=== PATIENT | male | born 1995 | race Caucasian/White ===

== ENCOUNTER 2022-11-23 14:03 | Emergency (ER) | payer BC, SELFPAY ==
--- OUTSIDE RECORDS SUMMARY | 2022-11-23 14:07 | XMS REPORT | Continuity of Care Document ---
:1995 Author Organization [facility] Address [address] [facility] [address] [place] [address] Care Team Providers Name Role Phone Tabatha DRAPER, Precious Felix Attending Clinician Unavailable Pilar Oh RN Attending Clinician Unavailable DESHAWN ALCOCER Attending Clinician Unavailable Nurse, Alphonso Pcp Assessment Clinic Attending Clinician Unavail able Deshawn Alcocer MD Attending Clinician Problems Condition Condition Condition Status Onset Resolution Last Treating Co mments Source Name Details Category Date Date Treatment Clinician Date Intractabl Intractabl Diagnosis Active Common e migraine e migraine Sp sharron with aura with aura - CH I with with St status status [facility] migrainosu migrainosu Me dical s s [place] Anxiety Anxiety Diagnosis Active Commo n [facility] Allergies, Adverse Reactions, Alerts Allergy Allergy Status Severity Reaction(s) Onset Inactive Treating Comm ents Source Name Type Date Date Clinician NO KNOWN Drug Active Univers ALLERGIE Class ity [facility] Social History Social Habit Start Date Stop Date Quantity Comments Source Sex Assigned At [birth year] [facility] 00:00:00 00:00:00 [facility] Branch Smoking Status Start Date Stop Date Source Unknown if ever smoked [facility] Medications Ordered Filled Start Stop Current Ordering Indication Dosage Frequency Signature Comments Components Source Medication Medication Date Date Medication? Clinician (SIG) Name Name Propranolol Propranolol Yes Vida Antonyok 1 capsul e Common HCl ER HCl ER 02-19 [facility] 00:00: - [facility] Sumatriptan Sumatriptan Yes Vida [place] 1 tablet Common Succinate Succinate 02-19 as needed [facility] 00:00: - [facility] MagOx 400 MagOx 400 2019- No Vida [place] 1 tablet Common 02-19 with food [facility] 00:00: 00:00 - [facility] :00 [facility] Procedures This patient has no known procedures. Encounters Start End Encounter Admission Attending Care Care Encounter Source Date/Time Date/Time Type Type Clinicians Facility Department ID 2021-02-05 2021-02-05 Letter TabathaVANNESSA allison [id number] Univers 00:00:00 00:00:00 (Out) Percious Felix MALINA [id number] it y of [facility] [id number] Dominick as [phone] [facility] [address] [place] 2021-02-05 2021-02-05 Telephone VANNESSA Oh [id number] Univers 00:00:00 00:00:00 Pilar MALINA [id number] it y [facility] [id number] Dominick as [id number] [address] 2021-02-04 2021-02-04 Outpatient Jhoana ALCOCER [facility] [id number] Univers 15:45:00 15:45:00 DESHAWN espinoza [facility] 2021-02-04 2021-02-04 Laboratory Nurse, Gal Pcp Assessment C [facility] [id number] Univers 15:14:59 15:29:59 Only Deshawn Alcocer PRIMARY [id number] ity [id number] [id number] [facility] [address] Branch 2018-02-19 2018-02-19 Outpatient Ana Luisa Oroscot [id number] Common 11:30:00 11:30:[address] [facility] [address] [facility] Results This patient has no known results.
[2022-11-23] MEDS ORDERED: KETOROLAC 30 MG/ML INJ ONE (14:47)
[2022-11-23] MEDS ORDERED: HYDROCODONE/APAP 7.5/325 MG TAB ONE (15:14)
--- NOTE | 2022-11-23 16:31 | RAD REPORT ---
EXAM DESCRIPTION: EHSAN MCCABE - 11/23/2022 3:49 pm CLINICAL HISTORY: PAIN COMPARISON: No comparisons TECHNIQUE: Left hand, 3 views. FINDINGS: No fracture is identified. There is no dislocation or periosteal reaction noted. Joint alignment is maintained. Soft tissue swelling about the proximal fourth digit with soft tissue irregularity and punctate radio densities, could relate to debris. IMPRESSION: Soft tissue abnormalities as above, without acute osseous abnormality.
--- NOTE | 2022-11-23 16:39 | ER ---
Nurse's Notes 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 Coronavirus screen: Vaccine status: Patient reports receiving the 2nd dose of the covid vaccine. Ebola Screen: Patient negative for fever greater than or equal to 101.5 degrees Fahrenheit, and additional compatible Ebola Virus Disease symptoms Patient denies exposure to infectious person. Patient denies travel to an Ebola-affected area in the 21 days before illness onset. Initial Sepsis Screen: Does the patient meet any 2 criteria? No. Patient's initial sepsis screen is negative. Does the patient have a suspected source of infection? No. Patient's initial sepsis screen is negative. Risk Assessment: Do you want to hurt yourself or someone else? Patient reports no desire to harm self or others. Onset of symptoms was November 23, 2022. 14:19 Method Of Arrival: Ambulatory vg1 14:19 Acuity: ALISHA 3 vg1 Triage Assessment: 14:23 General: Appears in no apparent distress. uncomfortable, Behavior is cooperative. Pain: vg1 Complains of pain in palmar aspect of proximal phalanx of left ring finger Pain currently is 4 out of 10 on a pain scale. Musculoskeletal: Swelling present in palmar aspect of proximal phalanx of left ring finger. Injury Description: Laceration sustained to palmar aspect of proximal phalanx of left ring finger. Historical: - Allergies: 14:23 No Known Allergies; vg1 - Home Meds: 14:23 Excedrin Migraine oral [Active]; vg1 - PMHx: 14:23 Migraines; vg1 - Immunization history:: Client reports receiving the 2nd dose of the Covid vaccine. - Social history:: Smoking status: Reported history of juuling and/or vaping. Screenin:48 [facility] ED Fall Risk Assessment (Adult) History of falling in the last 3 months, nj1 including since admission No falls in past 3 months (0 pts) Confusion or Disorientation No (0 pts) Intoxicated or Sedated No (0 pts) Impaired Gait No (0 pts) Mobility Assist Device Used No (0 pt) Altered Elimination No (0 pt) Score/Fall Risk Level 0 - 2 = Low Risk Oriented to surroundings, Maintained a safe environment, Hourly rounding (assess needs \T\ fall precautionary measures) done. Abuse screen: Denies threats or abuse. Denies injuries from another. Nutritional screening: No deficits noted. Tuberculosis screening: No symptoms or risk factors identified. Assessment: 16:41 Reassessment: Patient appears in no apparent distress at this time. Patient and/or nj1 family updated on plan of care and expected duration. Pain level reassessed. Patient is alert, oriented x 3, equal unlabored respirations, skin warm/dry/pink. Vital Signs: 14:19 BP 132 / 99; Pulse 83; Resp 16; Temp 98.4; Pulse Ox 100% ; Weight 68.04 kg; Height 5 vg1 ft. 6 in. ; Pain 4/10; 15:08 Pain 7/10; nj1 16:16 Pain 1/10; nj1 16:41 BP 117 / 78; Pulse 76; Resp 16; Pulse Ox 100% on R/A; Pain 1/10; nj1 14:19 Body Mass Index 24.21 (68.04 kg, 167.64 cm) vg1 14:19 Pain Scale: Adult vg1 15:08 Pain Scale: Adult nj1 16:16 Pain Scale: Adult nj1 16:41 Pain Scale: Adult va1 ED Course: 14:05 Patient arrived in ED. rg4 14:10 Mandie Melo FNP [facility] jh7 14:10 Quinn Cartagena MD is Attending Physician. jh7 14:23 Triage completed. vg1 14:23 Arm band placed on. vg1 14:47 Toyin Rubi, BARON is Primary Nurse. nj1 14:49 Patient has correct armband on for positive identification. Bed in low position. Call [facility] light in reach. Adult w/ patient. 15:51 XRAY Hand LEFT 3 View In Process Unspecified. EDMS 16:40 Wound care: located on palmar aspect of proximal phalanx of left ring finger was [facility] cleaned with soap and water, dressed with Neosporin, cling, Non adherent pad. 16:41 No provider procedures requiring assistance completed. nj1 16:45 Patient did not have IV access during this emergency room visit. nj1 Administered Medications: 14:42 Drug: Ketorolac IM 60 mg {Note: 30mg given to R deltoid and 30mg given to L deltoid nj1 (IM).} Route: IM; Site: Other; 16:15 Follow up: Response: No adverse reaction; Pain is decreased nj1 15:08 Drug: Hydrocodone-Acetaminophen PO (7.5 mg-325 mg) 1 tabs Route: PO; nj1 16:15 Follow up: Response: No adverse reaction; Pain is decreased nj1 Medication: 16:45 VIS not applicable for this client. nj1 Outcome: 16:38 Discharge ordered by . Thad 16:41 Discharged to home ambulatory, with family. nj1 16:41 Condition: stable 16:41 Discharge instructions given to patient, family, Instructed on discharge instructions, follow up and referral plans. medication usage, wound care, Demonstrated understanding of instructions, follow-up care, medications, wound care, Prescriptions given X 1. 16:49 Patient left the ED. nj1 Signatures: Dispatcher [employer] Fabiana Ricardo rg4 Anamaria Pickett, RN RN 1 Mandie Melo, ORCHID HAND ORCHID HAND 7 Toyin Rubi, RN RN nj1
--- NOTE | 2022-11-23 16:39 | EDPHYS ---
Physician Documentation [facility] Name: Sarahy Clark Age: 27 yrs Sex: Male : 1995 Arrival Date: 11/23/2022 Time: 14:03 Bed 12 Private MD: ED Physician Quinn Cartagena HPI: 11/23 14:23 This 27 yrs old Male presents to ER via Ambulatory with complaints of Hand Injury. [facility] 14:23 The patient or guardian reports a laceration, small avulsion laceration proximal to the jh7 PIP, pain, swelling. 27-year-old male reports that he got his left hand caught in a door which injured his fourth finger. Reports swelling to the digit and that his wedding ring is stuck on his finger.. Historical: - Allergies: 14:23 No Known Allergies; vg1 - Home Meds: 14:23 Excedrin Migraine oral [Active]; vg1 - PMHx: 14:23 Migraines; vg1 - Immunization history:: Client reports receiving the 2nd dose of the Covid vaccine. - Social history:: Smoking status: Reported history of juuling and/or vaping. ROS: 14:23 Constitutional: Negative for fever, chills, and weight loss, Eyes: Negative for injury, jh7 pain, redness, and discharge, ENT: Negative for injury, pain, and discharge, Cardiovascular: Negative for chest pain, palpitations, and edema, Respiratory: Negative for shortness of breath, cough, wheezing, and pleuritic chest pain, Back: Negative for injury and pain, Skin: Negative for injury, rash, and discoloration, Neuro: Negative for headache, weakness, numbness, tingling, and seizure. 14:23 Skin: Positive for laceration(s), of the left 4th digit, retained wedding ring. 14:23 All other systems are negative. Exam: 14:23 Constitutional: This is a well developed, well nourished patient who is awake, alert, jh7 and in no acute distress. Neck: Trachea midline, no thyromegaly or masses palpated, and no cervical lymphadenopathy. Supple, full range of motion without nuchal rigidity, or vertebral point tenderness. No Meningismus. Cardiovascular: Regular rate and rhythm with a normal S1 and S2. No gallops, murmurs, or rubs. Normal PMI, no JVD. No pulse deficits. Respiratory: Lungs have equal breath sounds bilaterally, clear to auscultation and percussion. No rales, rhonchi or wheezes noted. No increased work of breathing, no retractions or nasal flaring. Back: No spinal tenderness. No costovertebral tenderness. Full range of motion. Neuro: Awake and alert, GCS 15, oriented to person, place, time, and situation. Motor strength 5/5 in all extremities. Sensory grossly intact. Normal gait. 14:23 Musculoskeletal/extremity: ROM: Range of motion limited in the left fourth digit secondary to pain and swelling, Circulation is intact in all extremities. Pulses: are normal with no appreciated deficits, Sensation intact. 14:23 Skin: injury, laceration(s), the wound is approximately 0.5 cm(s), of the Palmar aspect of left fourth digit proximal to the PIP, Retained wedding ring on the left fourth digit due to significant swelling around the PIP. Vital Signs: 14:19 BP 132 / 99; Pulse 83; Resp 16; Temp 98.4; Pulse Ox 100% ; Weight 68.04 kg; Height 5 vg1 ft. 6 in. ; Pain 4/10; 15:08 Pain 7/10; nj1 16:16 Pain 1/10; nj1 16:41 BP 117 / 78; Pulse 76; Resp 16; Pulse Ox 100% on R/A; Pain 1/10; nj1 14:19 Body Mass Index 24.21 (68.04 kg, 167.64 cm) vg1 14:19 Pain Scale: Adult vg1 15:08 Pain Scale: Adult nj1 16:16 Pain Scale: Adult nj1 16:41 Pain Scale: Adult nj1 Procedures: 15:45 Foreign Body Removal: a ring, from the left left 4th digit, by ring remover. Dressing: jh7 4x4s were used to dress the wound, The patient tolerated the removal well. MDM: 14:10 Patient medically screened. [facility] 16:45 Differential diagnosis: Retained foreign body, phalanx fracture, superficial avulsion jh7 laceration. Data reviewed: vital signs, nurses notes, radiologic studies, plain films. I considered the following discharge prescriptions or medication management in the emergency department Medications were administered in the Emergency Department. See MAR. Historians other than the Patient: Spouse/Significant Other: . Counseling: I had a detailed discussion with the patient and/or guardian regarding: the historical points, exam findings, and any diagnostic results supporting the discharge/admit diagnosis, to return to the emergency department if symptoms worsen or persist or if there are any questions or concerns that arise at home. Response to treatment: the patient's symptoms have markedly improved after treatment. ED course: The avulsion laceration was very superficial and sutures were not indicated. After the ring was removed the wound was cleaned and bandaged. Was advised to monitor for signs and symptoms of infection and return to the ER with any new concerning symptoms.. 11/23 14:58 Order name: XRAY Hand LEFT 3 View; Complete Time: 16:37 [facility] 11/23 15:41 Order name: Wound dressing: bacitracin, clean wound, bandage; Complete Time: 16:41 [facility] Administered Medications: 14:42 Drug: Ketorolac IM 60 mg {Note: 30mg given to R deltoid and 30mg given to L deltoid nj1 (IM).} Route: IM; Site: Other; 16:15 Follow up: Response: No adverse reaction; Pain is decreased nj1 15:08 Drug: Hydrocodone-Acetaminophen PO (7.5 mg-325 mg) 1 tabs Route: PO; nj1 16:15 Follow up: Response: No adverse reaction; Pain is decreased nj1 Disposition Summary: 11/23/22 16:38 Discharge Ordered Location: Home [facility] Problem: new [facility] Symptoms: have improved [facility] Condition: Stable [facility] Diagnosis - Laceration with foreign body of finger without damage to nail [facility] Followup: [facility] - With: Private Physician - When: 2 - 3 days - Reason: Recheck today's complaints Discharge Instructions: - Discharge Summary Sheet [facility] - Nonsutured Laceration Care [facility] Forms: - Medication Reconciliation Form [facility] - Thank You Letter [facility] - Antibiotic Education [facility] Prescriptions: - Cephalexin 500 mg Oral Capsule - take 1 capsule by ORAL route every 12 hours for 7 days; 14 capsule; Refills: 0, jh7 Product Selection Permitted Signatures: Dispatcher [employer] Anamaria Ricardo RN RN vg1 Mandie Melo FNP EXPORT SALES ASSISTANT 7 Toyin Rubi RN RN nj1
[2022-11-23 16:57] VITALS: TEMP 98.4; O2SAT 100
[2022-11-23 17:00] VITALS: BP 117/78
== END 2022-11-23 16:49 | disposition home or self-care (01) ==
LOC: ER 14:03
DX: S61.225A Laceration with foreign body of left ring finger without damage to nail, initial encounter (principal)
CPT/HCPCS: 96372; 99284